=== PATIENT | male | born 1945 | race Caucasian/White ===

== ENCOUNTER → 2018-01-26 | Outpatient (CLI) | payer MEDICARE, OTHER ==
[2018-01-26 16:33] LABS: BASO % 0.4 % (0.0-1.0); EOS # 0.1 10^3/uL (0.0-0.50); EOS % 1.3 % (0.0-3.0); HEMOGLOBIN 13.7 g/dl (13.5-17.5); IMMATURE GRANULOCYTE % 0.3 % (0-3.0); LYMPH # 1.5 10^3/uL (1.5-4.5); LYMPH % 20.9 % (24.0-44.0); MEAN CORPUSCULAR HEMOGLOBIN 32.2 pg (27.0-33.0); MEAN CORPUSCULAR HGB CONC 35.1 g/dl (32.0-36.5); MEAN CORPUSCULAR VOLUME 91.8 fl (80.0-96.0); MONO # 0.6 10^3/uL (0.0-0.8); MONO % 8.6 % (0.0-5.0); NEUTROPHILS # 4.9 10^3/uL (1.8-7.7); NEUTROPHILS % 68.5 % (36.0-66.0); PLATELET COUNT, AUTOMATED 158 10^3/uL (150-450); RED BLOOD COUNT 4.25 10^6/uL (4.30-6.10); RED CELL DISTRIBUTION WIDTH 12.1 % (11.5-14.5); WHITE BLOOD COUNT 7.1 10^3/uL (4.0-10.0)
[2018-01-26 16:39] LABS: URIC ACID 7.4 MG/DL (3.5-7.2)
== END ==
LOC: M WUC 14:57
DX: M10.071 Idiopathic gout, right ankle and foot (principal)
CPT/HCPCS: 84550

== ENCOUNTER → 2018-01-31 | Outpatient (CLI) | payer MEDICARE, OTHER | LOC: M WUC 09:07 | DX: M79.671 Pain in right foot (principal); M10.071 Idiopathic gout, right ankle and foot; Q68.8 Other specified congenital musculoskeletal deformities | CPT/HCPCS: 73630 ==

== ENCOUNTER 2018-02-02 08:57 | Emergency (ER) | payer MEDICARE, OTHER ==
[2018-02-02] MEDS: KETOROLAC 60 MG/2 ML VIAL (J1885) IM (09:30)
== END 2018-02-02 10:42 | disposition home or self-care (01) ==
LOC: M ED 08:57
DX: M10.071 Idiopathic gout, right ankle and foot (principal); I10 Essential (primary) hypertension; Z79.82 Long term (current) use of aspirin; Z79.899 Other long term (current) drug therapy
CPT/HCPCS: J1885